=== PATIENT | male | born 1980 | race Hispanic/Latino ===

== ENCOUNTER 2024-12-16 06:35 | Day surgery (SDC) | payer SELFPAY ==
--- NOTE | 2024-12-15 14:17 | EKG ---
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
[2024-12-15 14:22] VITALS: BP 167/87; PULSE 98; RESP 18; TEMP 100.9; TEMP 99.5
[2024-12-15 14:29] LABS: IMMATURE GRANULOCYTE ABSOLUTE 0.04 K/uL (0-1); NUCLEATED RED BLOOD CELLS 0.0 % (0.0-0.19); PLATELET COUNT (AUTO) 298 K/uL (130-400); RED BLOOD CELL COUNT(AUTO) 5.96 MIL/uL (4.50-6.20); RED CELL DISTRIBUTION WIDTH 13.2 % (11.0-15.5); WHITE BLOOD COUNT (AUTO) 9.0 K/uL (4.8-10.8)
[2024-12-15 14:39] LABS: INR 1.01 (0.85-1.15)
[2024-12-15 14:51] LABS: ASPARTATE AMINOTRANSFERASE 13.0 U/L (10-37); CREATININE 0.9 mg/dL (0.5-1.3); GLOMERULAR FILTR. RATE CALC 109.0 mL/min (>90); GLUCOSE,RANDOM 148.0 mg/dL (70-105); SODIUM SERUM 144.0 mmol/L (136-145); TOTAL PROTEIN, SERUM 8.2 g/dL (6.0-8.3); UREA NITROGEN, BLOOD 14.0 mg/dL (7-18)
[~2024-12-16] VITALS: Ht 167.6 cm; Wt 92.6 kg
[2024-12-16] VITALS (13 sets, daily range): BP systolic 93–153; BP diastolic 53–81; PULSE 52–72; RESP 13–18; TEMP 97–98.1
[~2024-12-16 06:35] MED LIST: LOSA25TA41 PO; METO-408 PO
[2024-12-16] MEDS ORDERED: LIDOCAINE PF 100MG/5ML (2%) SYRINGE 5ML ONE ×2 (07:33→08:07)
[2024-12-16] MEDS ORDERED: SUCCINYLCHOLINE CHLORIDE 20 MG/ML 10 ML VIAL ONE (07:34)
[2024-12-16] MEDS ORDERED: NEOSTIGMINE METHYLSULFATE 1MG/ML IV ONE (07:34)
[2024-12-16] MEDS ORDERED: GLYCOPYRROLATE 0.2 MG/ML 5 ML VIAL ONE (07:34)
[2024-12-16] MEDS ORDERED: MIDAZOLAM HCL 1 MG/ML 2ML VIAL ONE (07:35)
[2024-12-16] MEDS: LIDOCAINE 1%-EPI 1:100,000 20 ML VIAL ONE (08:04)
[2024-12-16] MEDS: LIDOCAINE HCL 2% PF 20 ML JEL DISP.SYRIN MM ONE (08:13)
[2024-12-16] MEDS: LACTATED RINGERS 1000ML 1,000 ML IV ONE (08:13)
--- NOTE | 2024-12-16 08:16 | OP ---
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 Examination in the office revealed a chronic anal fissure, he was treated with topical therapies without improvement. After discussion with the patient he elected to undergo a partial lateral internal sphincterotomy. Risks were abrasions and alternatives were explained in detail to the patient who granted consent.] DESCRIPTION OF PROCEDURE: [The patient was identified in the holding area transferred to the OR placed supine on the operative table. Venodyne boots were placed for DVT prophylaxis. IV antibiotics were given within the hour of skin incision. After general anesthesia was obtained, time-out conducted, he was prepped and draped in the usual sterile fashion. He had been placed in lithotomy position with great care taken to pad all pressure points. Careful examination revealed a posterior anal fissure. No other pathologies were seen on exam. The intersphincteric groove for the identified on the left side and incised with the Bovie cautery. The internal sphincter was dissected and transected just to below the dentate line. Area was irrigated hemostasis obtained and a single Vicryl suture placed at the apex of the anal derm. Hemostasis noted to be excellent. Counts were done and correct. Gelfoam and Surgicel with lidocaine General left on the anal canal. There were no complications. I was present and scrubbed for the entire case.] SAMAN SHUKLA MD Dec 16, 2024 08:16
== END 2024-12-16 09:55 | disposition home or self-care (01) ==
LOC: DAH 06:35
PROVIDERS: ATTEND Surgery
DX: K60.1 Chronic anal fissure (principal); K92.1 Melena; I10 Essential (primary) hypertension; F41.9 Anxiety disorder, unspecified; K62.89 Other specified diseases of anus and rectum; Z79.899 Other long term (current) drug therapy; Z79.890 Hormone replacement therapy
CPT/HCPCS: 80053; 85025; 85610; 85730; 36415; 93005; 46080; A6260; A4663; J7120 ×2; A4649 ×3; J3010 ×2; J3490 ×3; J1100; J0330; J0665; J2003 ×2; J2250; J2704; J2405; J2710; J0690; A4930; A4215; A4213; A4222; A4221; A4216; A4223 ×2